=== PATIENT | female | born 1995 | race Two or more races ===

== ENCOUNTER 2017-11-09 08:43 | Emergency (ER) | payer OTHER ==
[~2017-11-09] VITALS: Ht 162.6 cm; Wt 64.4 kg
[~2017-11-09 08:43] MED LIST: AMOX1TAB12 PO; GILTUSS TR TAB1 EACH PO; NORFLEX100 MG PO; TORADOL10 MG PO; TYLENOL32 MG/ML; ZITHROMAX500 MG PO; ZOFRAN4 MG PO
[2017-11-10] MEDS ORDERED: CEFUROXIME500 MG PO (16:18)
[2017-11-10] MEDS ORDERED: ZANTAC150 MG PO (16:18)
[2017-11-10] MEDS ORDERED: INTESTINEX680 M1 PO (16:18)
== END 2017-11-09 10:39 | disposition home or self-care (01) ==
LOC: ER 08:43
DX: J35.01 Chronic tonsillitis (principal)

== ENCOUNTER 2017-11-10 08:29 | Emergency (ER) | payer OTHER ==
[~2017-11-10] VITALS: Ht 162.6 cm; Wt 64.4 kg
[2017-11-10] MEDS ORDERED: ZANTAC150 MG PO (16:18)
[2017-11-10] MEDS ORDERED: INTESTINEX680 M1 PO (16:18)
[2017-11-10] MEDS ORDERED: CEFUROXIME500 MG PO (16:18)
== END 2017-11-10 19:12 | disposition home or self-care (01) ==
LOC: ER 08:29
DX: K29.70 Gastritis, unspecified, without bleeding (principal); T36.0X5A Adverse effect of penicillins, initial encounter

== ENCOUNTER 2019-07-10 20:39 | Emergency (ER) | payer OTHER ==
[~2019-07-10] VITALS: Ht 162.6 cm; Wt 68.0 kg
[~2019-07-10 20:39] MED LIST changes: +CEFUROXIME500 MG PO; +INTESTINEX680 M1 PO; +ZANTAC150 MG PO
[2019-07-10] MEDS ORDERED: OSEL75CA PO (22:12)
[2019-07-10] MEDS ORDERED: TUSNEL LIQUID178 ML PO (22:12)
[2019-07-10] MEDS ORDERED: ZITHROMAX500 MG PO (22:12)
[2019-07-10] MEDS ORDERED: XOFLUZA40 MG PO (22:12)
[2019-07-10] MEDS ORDERED: DOLOGEN CAPLET1 EACH PO (22:12)
== END 2019-07-10 22:17 | disposition home or self-care (01) ==
LOC: ER 20:39
DX: B33.8 Other specified viral diseases (principal); J11.1 Influenza due to unidentified influenza virus with other respiratory manifestations; B96.0 Mycoplasma pneumoniae [M. pneumoniae] as the cause of diseases classified elsewhere

== ENCOUNTER 2021-08-31 21:59 | Emergency (ER) | payer OTHER ==
[~2021-08-31] VITALS: Ht 162.6 cm; Wt 72.6 kg
[~2021-08-31 21:59] MED LIST changes: +DOLOGEN CAPLET1 EACH PO; +OSEL75CA PO; +TUSNEL LIQUID178 ML PO; +XOFLUZA40 MG PO
[2021-09-01] MEDS ORDERED: PHENAGIL TABLE1 EACH PO (01:43)
[2021-09-01] MEDS ORDERED: ZITHROMAX500 MG PO (01:43)
== END 2021-09-01 | disposition home or self-care (01) ==
LOC: ER 21:59
DX: A49.3 Mycoplasma infection, unspecified site (principal); K52.9 Noninfective gastroenteritis and colitis, unspecified; Z91.013 Allergy to seafood

== ENCOUNTER 2021-10-28 15:42 | Emergency (ER) | payer OTHER ==
[~2021-10-28] VITALS: Ht 162.6 cm; Wt 74.4 kg
[~2021-10-28 15:42] MED LIST changes: +PHENAGIL TABLE1 EACH PO
== END 2021-10-28 18:46 | disposition home or self-care (01) ==
LOC: ER 15:42
DX: O21.8 Other vomiting complicating pregnancy (principal); Z3A.08 8 weeks gestation of pregnancy; A05.9 Bacterial foodborne intoxication, unspecified; E16.2 Hypoglycemia, unspecified; Z20.822 Contact with and (suspected) exposure to COVID-19; Z91.013 Allergy to seafood

== ENCOUNTER 2022-05-14 12:39 | Inpatient (IN) | payer OTHER ==
[~2022-05-14] VITALS: Ht 162.6 cm; Wt 84.8 kg
[2022-06-03] MEDS ORDERED: PRENATAL + DHA1 EAC1 PO (08:22)
[2022-06-03] MEDS ORDERED: PEPCID AC20 MG PO (08:23)
== END 2022-06-05 14:29 | disposition home or self-care (01) | DRG 807 ==
LOC: OB/GYN 05-31 12:39 → LDR 06-02 12:37 → OB/GYN 06-03 12:36
PROVIDERS: ADMIT Obstetrics & Gynecology; ATTEND Obstetrics & Gynecology
PROC: 3E0P7VZ Introduction of Hormone into Female Reproductive, Via Natural or Artificial Opening (ICD-10-PCS; 2022-06-02)
PROC: 3E033VJ Introduction of Other Hormone into Peripheral Vein, Percutaneous Approach (ICD-10-PCS; 2022-06-02)
PROC: 4A1HXCZ Monitoring of Products of Conception, Cardiac Rate, External Approach (ICD-10-PCS; 2022-06-02)
PROC: 10E0XZZ Delivery of Products of Conception, External Approach (ICD-10-PCS; principal; 2022-06-03)
PROC: 0HQ9XZZ Repair Perineum Skin, External Approach (ICD-10-PCS; 2022-06-03)
DX: O70.0 First degree perineal laceration during delivery (principal); O99.824 Streptococcus B carrier state complicating childbirth; Z37.0 Single live birth; Z3A.39 39 weeks gestation of pregnancy; Z20.822 Contact with and (suspected) exposure to COVID-19

== ENCOUNTER 2022-05-30 23:14 | Outpatient (CLI) | payer OTHER | END 2022-05-30 23:35 | disposition home or self-care (01) | LOC: NST 23:14 | PROVIDERS: ATTEND Obstetrics & Gynecology | DX: Z34.83 Encounter for supervision of other normal pregnancy, third trimester (principal) ==